=== PATIENT | male | born 1960 | race Caucasian/White ===

== ENCOUNTER 2016-07-20 16:18 | Inpatient (IN) | payer MEDICAID ==
[~2016-07-20] VITALS: Ht 172.7 cm; Wt 107.1 kg
[~2016-07-20 16:18] MED LIST: ASPIRIN 81M81 MG/TA2 PO; ATIVAN 0.50.5 MG/TAB PO; BIOTENE MOIST44.3 ML PO; CALAN80 MG; CALAN80 MG PO; CLARITIN LIQUI-10 MG; COLACE 100100 MG/CAP PO; FOLIC ACID 11 MG/TA1 PO; MAG-OX 400400 MG/TAB PO; MORPHINE SULFAT60 M1 PO; PERCOCET 325 MG1 TAB PO; PERCOCET 5/321 UDTAB PO; PRENATAL PLUS; PRINZIDE 25 MG-1 TAB; PRINZIDE 25 MG-1 TAB PO; PROTONIX 40MG T40 MG PO; ROXICODONE 55 MG/TAB PO; SENNA8.6 MG PO; TENORMIN 2525 MG/TAB; TENORMIN 5050 MG/TAB PO; TENORMIN100 MG; THERAGRAN TAB1 UDTAB PO; THIAMINE 1100 MG/TAB PO; TOPROL XL25 MG PO; TUMS500 MG PO; VERAPAMIL 440 MG/TAB PO; ZOCOR 40MG40 MG PO
[2016-11-08] MEDS ORDERED: MS CONTIN 330 MG/TAB PO (09:50)
[2016-11-08] MEDS ORDERED: PERCOCET 325 MG1 TAB PO (09:52)
[2016-11-09] VITALS (15 sets, daily range): BP systolic 88–143; BP diastolic 49–88; PULSE 70–109; TEMP 97.9–101.7
[2016-11-10 05:12] VITALS: BP 131/74; PULSE 85; TEMP 97.5
[2016-11-10 06:24] LABS: HEMATOCRIT 26.9 % (42.0-52.0)
[2016-11-10 07:37] VITALS: BP 107/72; PULSE 100; TEMP 97.9
[2016-11-10 12:19] VITALS: BP 99/52; PULSE 94; TEMP 98.9
[2016-11-10] MEDS ORDERED: ASPI325T6 PO (14:38)
== END 2016-11-10 16:00 | disposition home or self-care (01) | DRG 470 ==
LOC: JCC 08-30 07:30
PROVIDERS: Orthopaedic Surgery Sports Medicine
PROC: 0SRD0JA Replacement of Left Knee Joint with Synthetic Substitute, Uncemented, Open Approach (ICD-10-PCS; principal; 2016-11-09 07:30)
DX: M16.12 Unilateral primary osteoarthritis, left hip (principal); I10 Essential (primary) hypertension
CPT/HCPCS: A9284; C1713; C1776; J0690; J1170; J2250; J2274; J2405; J2704; J3010; J7120

== ENCOUNTER → 2016-11-03 | Outpatient (CLI) | payer MEDICAID ==
[~2016-11-03] MED LIST changes: +ASPI325T6 PO; +MS CONTIN 330 MG/TAB PO
== END ==
LOC: COL.LAB 12:11
DX: Z01.812 Encounter for preprocedural laboratory examination (principal); M25.851 Other specified joint disorders, right hip

== ENCOUNTER 2016-11-08 12:36 | Outpatient (RCR) | payer MEDICAID ==
[~2016-11-08 12:36] MED LIST changes: -ASPI325T6 PO
[2016-11-10] MEDS ORDERED: ASPI325T6 PO (14:38)
== END 2016-12-29 11:15 | disposition home or self-care (01) ==
LOC: MKS.ESL.PT 12:36
DX: M16.12 Unilateral primary osteoarthritis, left hip (principal)

== ENCOUNTER 2016-12-27 14:00 | Outpatient (RCR) | payer MEDICAID ==
[~2016-12-27 14:00] MED LIST changes: +ASPI325T6 PO
== END 2016-12-29 11:15 | disposition home or self-care (01) ==
LOC: MKS.ESL.PT 14:00
DX: M16.12 Unilateral primary osteoarthritis, left hip (principal); Z96.642 Presence of left artificial hip joint
CPT/HCPCS: G0283-GP

== ENCOUNTER 2017-02-19 13:24 | Emergency (ER) | payer MEDICAID ==
[~2017-02-19] VITALS: Ht 172.7 cm; Wt 104.5 kg
[2017-02-19 13:42] VITALS: BP 124/71; TEMP 97.9
[2017-02-19 14:21] VITALS: PULSE 85
== END 2017-02-19 14:21 | disposition home or self-care (01) ==
LOC: COL.ER 13:24
DX: L91.8 Other hypertrophic disorders of the skin (principal); B37.2 Candidiasis of skin and nail; I10 Essential (primary) hypertension

== ENCOUNTER 2018-01-22 08:20 | Emergency (ER) | payer MEDICAID ==
[~2018-01-22] VITALS: Ht 172.7 cm; Wt 90.9 kg
[2018-01-22 08:27] VITALS: TEMP 98.9
[2018-01-22 09:00] LABS: HEMOGLOBIN 14.4 g/dl (13.5-18.0); MEAN CELL VOLUME 106 fl (80.0-100.0); MEAN CORPUSCULAR HEMOGLOBIN 37 pg (27.0-31.0); MEAN CORPUSCULAR HGB CONC 35 g/dl (33.0-37.0); MEAN PLATELET VOLUME 8.8 fl (7.4-10.4); PLATELET COUNT 110 K/mm3 (130-400); RED BLOOD COUNT 3.86 M/mm3 (4.20-5.60); REDCELL DISTRIBUTION WIDTH-CV 13.7 % (11.5-14.5)
[2018-01-22 09:10] LABS: ALBUMIN 4.5 gm/dL (3.5-5.0); BILIRUBIN,TOTAL 1.2 mg/dL (0.0-1.0); CALCIUM 9.9 mg/dL (8.4-10.2); CREATININE, serum 0.58 mg/dL (0.66-1.25)
[2018-01-22 09:22] LABS: BAND 25 % (0-10); LYMPHOCYTE 16 % (20.0-51.0); NEUTROPHILS 50 % (42.0-75.2); PLATELET ESTIMATE DECREASED (NORMAL)
[2018-01-22] MEDS ORDERED: VALIUM 5MG T5 MG/TAB PO (14:00)
[2018-01-22] MEDS ORDERED: ZOFRAN 4MG T4 MG/TAB PO (14:01)
[2018-01-22 14:14] VITALS: BP 130/80; PULSE 86
== END 2018-01-22 14:15 | disposition home or self-care (01) ==
LOC: COL.ER 08:20
PROVIDERS: Emergency Medicine
DX: F10.129 Alcohol abuse with intoxication, unspecified (principal); R11.2 Nausea with vomiting, unspecified; Y90.8 Blood alcohol level of 240 mg/100 ml or more; Z86.59 Personal history of other mental and behavioral disorders; Z79.82 Long term (current) use of aspirin
CPT/HCPCS: J2405; J3475; J7030

== ENCOUNTER 2018-03-16 16:31 | Emergency (ER) | payer MEDICAID ==
[~2018-03-16] VITALS: Ht 172.7 cm; Wt 90.9 kg
[~2018-03-16 16:31] MED LIST changes: +VALIUM 5MG T5 MG/TAB PO; +ZOFRAN 4MG T4 MG/TAB PO
[2018-03-16 16:32] VITALS: TEMP 99.1
[2018-03-16] MEDS ORDERED: ZOCOR 10MG10 MG PO (16:36)
[2018-03-16 16:50] LABS: BASO # 0.1 (0.0-0.2); BASO % 1.4 % (0.0-2.0); EOS # 0.3 (0.0-0.7); EOS % 3.9 % (0-4.0); GRAN # 4.6 (1.4-6.5); HEMOGLOBIN 11.5 g/dl (13.5-18.0); LYMPH # 1.1 (1.2-3.4); LYMPH % 15.7 % (20.0-51.0); MEAN CELL VOLUME 109 fl (80.0-100.0); MEAN CORPUSCULAR HEMOGLOBIN 38 pg (27.0-31.0); MEAN CORPUSCULAR HGB CONC 35 g/dl (33.0-37.0); MEAN PLATELET VOLUME 8.7 fl (7.4-10.4); MONO # 0.7 (0.1-0.6); MONO % 10.2 % (1.7-9.3); PLATELET COUNT 131 K/mm3 (130-400); RED BLOOD COUNT 3.01 M/mm3 (4.20-5.60); REDCELL DISTRIBUTION WIDTH-CV 12.8 % (11.5-14.5)
[2018-03-16 16:59] LABS: BILIRUBIN,TOTAL 1.8 mg/dL (0.0-1.0); CALCIUM 8.6 mg/dL (8.4-10.2); CREATININE, serum 0.46 mg/dL (0.66-1.25); POTASSIUM 4.2 mmol/L (3.4-5.0); TOTAL PROTEIN 7.5 gm/dL (6.4-8.2)
[2018-03-16 17:07] LABS: HEMATOCRIT 32.7 % (42.0-52.0)
[2018-03-16 19:28] VITALS: BP 128/88; PULSE 95
[2018-03-17] MEDS ORDERED: VALIUM 5MG T5 MG/TAB PO (17:31)
== END 2018-03-16 19:31 | disposition home or self-care (01) ==
LOC: COL.ER 16:31
PROVIDERS: Emergency Medicine
DX: S16.1XXA Strain of muscle, fascia and tendon at neck level, initial encounter (principal); S00.83XA Contusion of other part of head, initial encounter; Z23 Encounter for immunization; Z79.82 Long term (current) use of aspirin; W01.0XXA Fall on same level from slipping, tripping and stumbling without subsequent striking against object, initial encounter; Y92.009 Unspecified place in unspecified non-institutional (private) residence as the place of occurrence of the external cause
CPT/HCPCS: J1885; J7030

== ENCOUNTER 2018-03-17 15:51 | Emergency (ER) | payer MEDICAID ==
[~2018-03-17] VITALS: Ht 172.7 cm; Wt 90.9 kg
[~2018-03-17 15:51] MED LIST changes: +ZOCOR 10MG10 MG PO
[2018-03-17 15:53] VITALS: TEMP 98.5
[2018-03-17 16:31] LABS: MEAN CELL VOLUME 110 fl (80.0-100.0); MEAN CORPUSCULAR HEMOGLOBIN 38 pg (27.0-31.0); MEAN CORPUSCULAR HGB CONC 34 g/dl (33.0-37.0); MEAN PLATELET VOLUME 8.5 fl (7.4-10.4); PLATELET COUNT 126 K/mm3 (130-400); RED BLOOD COUNT 2.93 M/mm3 (4.20-5.60); REDCELL DISTRIBUTION WIDTH-CV 12.6 % (11.5-14.5)
[2018-03-17 16:33] LABS: HEMATOCRIT 32.2 % (42.0-52.0)
[2018-03-17 16:49] LABS: ALBUMIN 3.7 gm/dL (3.5-5.0); BILIRUBIN,TOTAL 1.6 mg/dL (0.0-1.0); CALCIUM 8.8 mg/dL (8.4-10.2); CREATININE, serum 0.48 mg/dL (0.66-1.25); POTASSIUM 4.4 mmol/L (3.4-5.0); TOTAL PROTEIN 7.2 gm/dL (6.4-8.2)
[2018-03-17 17:08] LABS: BAND 24 % (0-10); BASOPHIL 3 % (0-2); EOSINOPHIL 2 % (0-4); LYMPHOCYTE 20 % (20.0-51.0); METAMYELOCYTE 3 % (0-0); NEUTROPHILS 44 % (42.0-75.2); PLATELET ESTIMATE DECREASED (NORMAL)
[2018-03-17] MEDS ORDERED: VALIUM 5MG T5 MG/TAB PO (17:31)
[2018-03-17 17:44] VITALS: BP 135/94; PULSE 95
== END 2018-03-17 17:46 | disposition home or self-care (01) ==
LOC: COL.ER 15:51
PROVIDERS: Physician Assistant
DX: F10.229 Alcohol dependence with intoxication, unspecified (principal); Y90.8 Blood alcohol level of 240 mg/100 ml or more; Z79.82 Long term (current) use of aspirin
CPT/HCPCS: J3411; J7030

== ENCOUNTER 2018-03-26 11:19 | Emergency (ER) | payer MEDICAID ==
[~2018-03-26] VITALS: Ht 172.7 cm; Wt 95.9 kg
[2018-03-26 11:21] VITALS: TEMP 99.6
[2018-03-26] MEDS ORDERED: VALIUM 5MG T5 MG/TAB PO (11:43)
[2018-03-26 11:59] LABS: HEMOGLOBIN 12.7 g/dl (13.5-18.0); MEAN CELL VOLUME 110 fl (80.0-100.0); MEAN CORPUSCULAR HEMOGLOBIN 38 pg (27.0-31.0); MEAN CORPUSCULAR HGB CONC 35 g/dl (33.0-37.0); MEAN PLATELET VOLUME 8.7 fl (7.4-10.4); PLATELET COUNT 145 K/mm3 (130-400); RED BLOOD COUNT 3.32 M/mm3 (4.20-5.60); REDCELL DISTRIBUTION WIDTH-CV 13.7 % (11.5-14.5)
[2018-03-26 12:12] LABS: ALANINE AMINOTRANSFERASE 52 U/L (21-72); ALBUMIN 3.8 gm/dL (3.5-5.0); ALKALINE PHOSPHATASE 204 U/L (50-136); ANION GAP 16 mmol/L (7-16); AST,SGOT 91 U/L (15-37); BILIRUBIN,TOTAL 2.1 mg/dL (0.0-1.0); BLOOD UREA NITROGEN 9 mg/dL (9-20); CALCIUM 8.7 mg/dL (8.4-10.2); CARBON DIOXIDE 25 mmol/L (22-30); CHLORIDE 100 mmol/L (98-107); CREATININE, serum 0.53 mg/dL (0.66-1.25); GLUCOSE 118 mg/dL (74-106); POTASSIUM 3.3 mmol/L (3.4-5.0); SODIUM 140 mmol/L (137-145); TOTAL PROTEIN 7.7 gm/dL (6.4-8.2)
[2018-03-26 12:13] LABS: ALCOHOL(ethanol),MEDICAL < 10 mg/dL
[2018-03-26 12:16] LABS: HEMATOCRIT 36.6 % (42.0-52.0)
[2018-03-26] MEDS ORDERED: ZOFRAN ODT4 MG PO (12:31)
[2018-03-26 12:39] LABS: COLLECTION METHOD CLEAN CATCH
[2018-03-26 12:44] LABS: MUCOUS Present /lpf; PH 6 (5-8); SQUAMOUS EPITHELIAL 0-2 /hpf; URINE APPEARANCE Clear; URINE BACTERIA None Seen /hpf; URINE BILIRUBIN Negative (NEGATIVE); URINE BLOOD Negative (NEGATIVE); URINE COLOR Yellow; URINE GLUCOSE Negative (NEGATIVE); URINE KETONE Negative (NEGATIVE); URINE LEUKOCYTE ESTERASE Trace (NEGATIVE); URINE NITRATE Negative (NEGATIVE); URINE PROTEIN(semi-quant) Negative (NEGATIVE); URINE RBC 0-2 /hpf; URINE UROBILINOGEN Negative (NEGATIVE)
[2018-03-26 13:08] VITALS: BP 124/84; PULSE 83
[2018-03-26 13:44] LABS: ANISOCYTOSIS 1+; BAND 8 % (0-10); BASOPHIL 1 % (0-2); EOSINOPHIL 2 % (0-4); LYMPHOCYTE 22 % (20.0-51.0); METAMYELOCYTE 2 % (0-0); NEUTROPHILS 61 % (42.0-75.2); PLATELET ESTIMATE DECREASED (NORMAL)
== END 2018-03-26 13:10 | disposition home or self-care (01) ==
LOC: COL.ER 11:19
PROVIDERS: Family Medicine
DX: F10.239 Alcohol dependence with withdrawal, unspecified (principal); F17.210 Nicotine dependence, cigarettes, uncomplicated; Z79.82 Long term (current) use of aspirin
CPT/HCPCS: J2060; J7030

== ENCOUNTER 2018-04-29 07:33 | Emergency (ER) | payer MEDICAID ==
[~2018-04-29] VITALS: Ht 172.7 cm; Wt 93.2 kg
[~2018-04-29 07:33] MED LIST changes: +ZOFRAN ODT4 MG PO
[2018-04-29 07:43] VITALS: BP 144/77
[2018-04-29 08:45] LABS: HEMATOCRIT 37.3 % (42.0-52.0); HEMOGLOBIN 12.8 g/dl (13.5-18.0); MEAN CELL VOLUME 101 fl (80.0-100.0); MEAN CORPUSCULAR HEMOGLOBIN 35 pg (27.0-31.0); MEAN CORPUSCULAR HGB CONC 34 g/dl (33.0-37.0); MEAN PLATELET VOLUME 9.5 fl (7.4-10.4); PLATELET COUNT 224 K/mm3 (130-400); REDCELL DISTRIBUTION WIDTH-CV 12.8 % (11.5-14.5)
[2018-04-29 08:53] LABS: PROTHROMBIN TIME 11.6 SECONDS (9.7-12.8)
[2018-04-29 08:55] LABS: PARTIAL THROMBOPLASTIN TIME 35.4 SECONDS (26.0-37.0)
[2018-04-29 08:56] LABS: BILIRUBIN,TOTAL 1.2 mg/dL (0.0-1.0); CALCIUM 9.9 mg/dL (8.4-10.2); CREATININE, serum 0.82 mg/dL (0.66-1.25)
[2018-04-29 09:01] LABS: BAND 18 % (0-10); EOSINOPHIL 10 % (0-4); LYMPHOCYTE 6 % (20.0-51.0); NEUTROPHILS 64 % (42.0-75.2)
[2018-04-29 09:02] LABS: PLATELET ESTIMATE NORMAL (NORMAL)
[2018-04-29] MEDS ORDERED: DOXYCYCLINE 10100 MG PO (10:50)
[2018-04-29] MEDS ORDERED: OMNICEF 300MG300 MG PO (10:50)
[2018-04-29 12:09] VITALS: PULSE 91; TEMP 97.5
== END 2018-04-29 12:05 | disposition home or self-care (01) ==
LOC: COL.ER 07:33
PROVIDERS: Emergency Medicine
DX: L03.114 Cellulitis of left upper limb (principal); I10 Essential (primary) hypertension; E78.00 Pure hypercholesterolemia, unspecified
CPT/HCPCS: J0696; J1170; J7030; J7050

== ENCOUNTER 2018-04-30 07:58 | Inpatient (IN) | payer MEDICAID ==
[~2018-04-30] VITALS: Ht 172.7 cm; Wt 93.2 kg
[~2018-04-30 07:58] MED LIST changes: +DOXYCYCLINE 10100 MG PO; +OMNICEF 300MG300 MG PO
[2018-04-30 08:44] LABS: HEMOGLOBIN 12.5 g/dl (13.5-18.0); MEAN CELL VOLUME 102 fl (80.0-100.0); MEAN CORPUSCULAR HEMOGLOBIN 36 pg (27.0-31.0); MEAN CORPUSCULAR HGB CONC 36 g/dl (33.0-37.0); MEAN PLATELET VOLUME 9.2 fl (7.4-10.4); PLATELET COUNT 198 K/mm3 (130-400); RED BLOOD COUNT 3.44 M/mm3 (4.20-5.60); REDCELL DISTRIBUTION WIDTH-CV 13.1 % (11.5-14.5)
[2018-04-30 08:52] LABS: ALBUMIN 3.6 gm/dL (3.5-5.0); BILIRUBIN,TOTAL 0.8 mg/dL (0.0-1.0); C-REACTIVE PROTEIN 7.8 mg/dL (0.0-0.9); CALCIUM 10.1 mg/dL (8.4-10.2); CREATININE, serum 0.6 mg/dL (0.66-1.25); POTASSIUM 3.8 mmol/L (3.4-5.0); TOTAL PROTEIN 7.3 gm/dL (6.4-8.2)
[2018-04-30 09:23] LABS: BAND 19 % (0-10); EOSINOPHIL 4 % (0-4); LYMPHOCYTE 8 % (20.0-51.0); NEUTROPHILS 66 % (42.0-75.2)
[2018-04-30 09:24] LABS: PLATELET ESTIMATE NORMAL (NORMAL); STOMATOCYTE 1+
[2018-04-30 09:28] LABS: ERYTHROCYTE SEDIMENTATION RATE 80 mm/hr (0-30)
[2018-04-30 12:48] VITALS: BP 121/67; PULSE 83; TEMP 98.5
[2018-04-30 16:35] VITALS: BP 122/76; PULSE 84; TEMP 98.7
[2018-04-30 20:30] VITALS: BP 124/72; PULSE 84; TEMP 97.5
[2018-05-01 01:13] VITALS: BP 125/72; PULSE 76; TEMP 98.2
[2018-05-01 07:06] LABS: BASO # 0.1 (0.0-0.2); BASO % 0.5 % (0.0-2.0); EOS # 1.6 (0.0-0.7); EOS % 9.4 % (0-4.0); GRAN % 66.5 % (42.2-75.2); HEMOGLOBIN 11.4 g/dl (13.5-18.0); LYMPH # 1.8 (1.2-3.4); LYMPH % 10.6 % (20.0-51.0); MEAN CELL VOLUME 102 fl (80.0-100.0); MEAN CORPUSCULAR HEMOGLOBIN 35 pg (27.0-31.0); MEAN CORPUSCULAR HGB CONC 34 g/dl (33.0-37.0); MEAN PLATELET VOLUME 9.5 fl (7.4-10.4); MONO # 0.8 (0.1-0.6); MONO % 4.9 % (1.7-9.3); PLATELET COUNT 251 K/mm3 (130-400); RED BLOOD COUNT 3.29 M/mm3 (4.20-5.60); REDCELL DISTRIBUTION WIDTH-CV 12.8 % (11.5-14.5)
[2018-05-01 07:10] LABS: HEMATOCRIT 33.6 % (42.0-52.0)
[2018-05-01 07:16] LABS: CALCIUM 9.1 mg/dL (8.4-10.2); CREATININE, serum 0.6 mg/dL (0.66-1.25)
[2018-05-01 07:52] VITALS: BP 127/82; PULSE 89; TEMP 98.4
[2018-05-01 08:07] LABS: BAND 8 % (0-10); BASOPHIL 1 % (0-2); EOSINOPHIL 8 % (0-4); LYMPHOCYTE 9 % (20.0-51.0); NEUTROPHILS 68 % (42.0-75.2)
[2018-05-01 08:11] LABS: PLATELET ESTIMATE NORMAL (NORMAL)
[2018-05-01 11:44] VITALS: BP 116/81; PULSE 75; TEMP 98.5
[2018-05-01 15:21] VITALS: BP 118/65; PULSE 73; TEMP 99
[2018-05-01 20:04] VITALS: BP 131/69; PULSE 80; TEMP 98.2
[2018-05-02 00:26] VITALS: BP 106/49; PULSE 76; TEMP 98.4
[2018-05-02 00:38] LABS: RPR (VDRL) Non-reactive (())
[2018-05-02 07:25] LABS: MEAN CELL VOLUME 103 fl (80.0-100.0); MEAN CORPUSCULAR HEMOGLOBIN 35 pg (27.0-31.0); MEAN CORPUSCULAR HGB CONC 34 g/dl (33.0-37.0); MEAN PLATELET VOLUME 9.9 fl (7.4-10.4); PLATELET COUNT 243 K/mm3 (130-400); RED BLOOD COUNT 3.16 M/mm3 (4.20-5.60); REDCELL DISTRIBUTION WIDTH-CV 12.7 % (11.5-14.5)
[2018-05-02 07:29] LABS: HEMATOCRIT 32.6 % (42.0-52.0)
[2018-05-02 07:35] LABS: CALCIUM 8.8 mg/dL (8.4-10.2); CREATININE, serum 0.57 mg/dL (0.66-1.25); POTASSIUM 3.8 mmol/L (3.4-5.0)
[2018-05-02 07:50] VITALS: BP 138/84; PULSE 74; TEMP 98.5
[2018-05-02 08:50] LABS: BAND 13 % (0-10); EOSINOPHIL 13 % (0-4); HYPOCHROMIA 2+; LYMPHOCYTE 19 % (20.0-51.0); METAMYELOCYTE 1 % (0-0); MYELOCYTE 2 % (0-0); NEUTROPHILS 49 % (42.0-75.2)
[2018-05-02 08:51] LABS: PLATELET ESTIMATE NORMAL (NORMAL)
[2018-05-02 11:05] VITALS: BP 136/74; PULSE 91; TEMP 98.2
[2018-05-02 12:45] LABS: LYME DISEASE ANTIBODIES Negative (Negative)
[2018-05-02] MEDS ORDERED: CEPHALEXIN500 M1 PO (14:00)
== END 2018-05-02 16:00 | disposition home or self-care (01) | DRG 603 ==
LOC: COL.ER 07:58 → MEDICAL 09:14
PROVIDERS: Family Medicine; Internal Medicine; Internal Medicine Infectious Disease
DX: L03.114 Cellulitis of left upper limb (principal); M19.90 Unspecified osteoarthritis, unspecified site; F10.10 Alcohol abuse, uncomplicated; R21 Rash and other nonspecific skin eruption
CPT/HCPCS: 99223-AI; 99233-AI; 99239; J0696; J1450; J1644; J3010; J7030

== ENCOUNTER 2018-07-19 19:30 | Emergency (ER) | payer MEDICAID ==
[~2018-07-19] VITALS: Ht 172.7 cm; Wt 97.7 kg
[~2018-07-19 19:30] MED LIST changes: +CEPHALEXIN500 M1 PO
[2018-07-19 19:34] VITALS: TEMP 99.1
[2018-07-19 20:05] LABS: BASO # 0.1 (0.0-0.2); BASO % 0.8 % (0.0-2.0); EOS % 0.1 % (0-4.0); GRAN # 8.2 (1.4-6.5); GRAN % 79.3 % (42.2-75.2); HEMATOCRIT 44.3 % (42.0-52.0); HEMOGLOBIN 14.8 g/dl (13.5-18.0); LYMPH % 9.6 % (20.0-51.0); MEAN CELL VOLUME 103 fl (80.0-100.0); MEAN CORPUSCULAR HEMOGLOBIN 34 pg (27.0-31.0); MEAN CORPUSCULAR HGB CONC 33 g/dl (33.0-37.0); MONO # 0.8 (0.1-0.6); PLATELET COUNT 170 K/mm3 (130-400); RED BLOOD COUNT 4.31 M/mm3 (4.20-5.60); REDCELL DISTRIBUTION WIDTH-CV 15.5 % (11.5-14.5)
[2018-07-19 20:10] LABS: ARTERIAL BLD GAS O2 SATURATION 94.2 % (92-100); ARTERIAL BLD GAS TCO2 CT 14.3; ARTERIAL BLOOD GAS HCO3 13.4 meq/L (22-26); ARTERIAL BLOOD GAS PCO2 27.3 mmHg (35-45); ARTERIAL BLOOD GAS pH 7.31 (7.35-7.45)
[2018-07-19 20:11] LABS: ALANINE AMINOTRANSFERASE 77 U/L (21-72); ALKALINE PHOSPHATASE 128 U/L (50-136); ANION GAP 35 mmol/L (7-16); AST,SGOT 189 U/L (15-37); BILIRUBIN,TOTAL 3.6 mg/dL (0.0-1.0); BLOOD UREA NITROGEN 12 mg/dL (9-20); CALCIUM 10.2 mg/dL (8.4-10.2); CREATININE, serum 0.89 mg/dL (0.66-1.25); GLUCOSE 101 mg/dL (74-106); LIPASE 132 U/L (23-300); POTASSIUM 4.3 mmol/L (3.4-5.0); SODIUM 136 mmol/L (137-145); TOTAL PROTEIN 8.7 gm/dL (6.4-8.2)
[2018-07-19 20:12] LABS: CARBON DIOXIDE 13 mmol/L (22-30); CHLORIDE 89 mmol/L (98-107)
[2018-07-19 20:16] LABS: ALCOHOL(ethanol),MEDICAL 254 mg/dL
[2018-07-19] MEDS ORDERED: MS CONTIN 115 MG/TAB PO (20:43)
[2018-07-19 20:47] LABS: TROPONIN-I < 0.012 ng/mL (0.000-0.034)
[2018-07-19 21:53] LABS: COLLECTION METHOD CLEAN CATCH
[2018-07-19 22:08] LABS: GRANULAR CAST >12 /lpf; HYALINE CAST >12 /lpf; MUCOUS Present /lpf; PH 5 (5-8); SQUAMOUS EPITHELIAL 0-2 /hpf; URINE APPEARANCE Hazy; URINE BACTERIA Rare /hpf; URINE BILIRUBIN Negative (NEGATIVE); URINE BLOOD Negative (NEGATIVE); URINE COLOR Amber; URINE GLUCOSE Negative (NEGATIVE); URINE KETONE 2+ (NEGATIVE); URINE LEUKOCYTE ESTERASE Negative (NEGATIVE); URINE NITRATE Negative (NEGATIVE); URINE PROTEIN(semi-quant) 3+ (NEGATIVE); URINE RBC 0-2 /hpf; URINE UROBILINOGEN >=4.0 mg/dL (NEGATIVE)
[2018-07-19 23:01] VITALS: BP 107/75
[2018-07-19 23:30] VITALS: PULSE 71
== END 2018-07-20 | disposition short-term general hospital (02) ==
LOC: COL.ER 19:30
PROVIDERS: Family Medicine
DX: F10.20 Alcohol dependence, uncomplicated (principal); E86.9 Volume depletion, unspecified; E87.2 Acidosis; I10 Essential (primary) hypertension; Z79.891 Long term (current) use of opiate analgesic; Z87.19 Personal history of other diseases of the digestive system; Z87.891 Personal history of nicotine dependence; Y90.8 Blood alcohol level of 240 mg/100 ml or more
CPT/HCPCS: C9113; J1170; J2060; J2405; J7030; J7042; J7120; Q9967

== ENCOUNTER 2018-10-03 17:31 | Inpatient (IN) | payer MEDICAID ==
[2018-10-03] VITALS (48 sets, daily range): BP systolic 155; BP diastolic 96; PULSE 95; TEMP 98; O2SAT 81–99
[~2018-10-03] VITALS: Ht 172.7 cm; Wt 76.7 kg
[~2018-10-03 17:31] MED LIST changes: +MS CONTIN 115 MG/TAB PO
[2018-10-03 18:22] LABS: HEMATOCRIT 44.6 % (42.0-52.0); HEMOGLOBIN 15.7 g/dl (13.5-18.0); MEAN CELL VOLUME 113 fl (80.0-100.0); MEAN CORPUSCULAR HEMOGLOBIN 40 pg (27.0-31.0); MEAN CORPUSCULAR HGB CONC 35 g/dl (33.0-37.0); MEAN PLATELET VOLUME 9.6 fl (7.4-10.4); PLATELET COUNT 186 K/mm3 (130-400); RED BLOOD COUNT 3.96 M/mm3 (4.20-5.60); REDCELL DISTRIBUTION WIDTH-CV 13.2 % (11.5-14.5)
[2018-10-03 18:35] LABS: ALBUMIN 5.2 gm/dL (3.5-5.0); BILIRUBIN,TOTAL 3.8 mg/dL (0.0-1.0); CALCIUM 11.4 mg/dL (8.4-10.2); CREATININE, serum 0.62 mg/dL (0.66-1.25); POTASSIUM 4.1 mmol/L (3.4-5.0)
[2018-10-03 18:53] LABS: BAND 11 % (0-10); LYMPHOCYTE 16 % (20.0-51.0); METAMYELOCYTE 2 % (0-0); NEUTROPHILS 68 % (42.0-75.2); PLATELET ESTIMATE NORMAL (NORMAL)
[2018-10-03 19:19] LABS: INR 1.1 (0.8-3.0)
[2018-10-03] MEDS ORDERED: ZOFRAN ODT4 MG PO (19:56)
[2018-10-03] MEDS ORDERED: PHENERGAN25 MG RC (19:56)
[2018-10-03] MEDS ORDERED: CLARITIN 1010 MG/TAB PO (22:33)
[2018-10-03 22:38] LABS: PHOSPHOROUS 4.2 mg/dL (2.5-4.5)
[2018-10-03 22:55] LABS: COLLECTION METHOD CLEAN CATCH
[2018-10-03 23:08] LABS: MUCOUS Present /lpf; PH 6 (5-8); SQUAMOUS EPITHELIAL None Seen /hpf; URINE APPEARANCE Clear; URINE BACTERIA None Seen /hpf; URINE BILIRUBIN Negative (NEGATIVE); URINE BLOOD Negative (NEGATIVE); URINE COLOR Yellow; URINE GLUCOSE Negative (NEGATIVE); URINE KETONE 1+ (NEGATIVE); URINE LEUKOCYTE ESTERASE Negative (NEGATIVE); URINE NITRATE Negative (NEGATIVE); URINE PROTEIN(semi-quant) 1+ (NEGATIVE); URINE RBC 0-2 /hpf; URINE UROBILINOGEN Negative (NEGATIVE)
[2018-10-03 23:18] LABS: TRICYCLIC ANTIDEPRESS URINE NEGATIVE
[2018-10-04] VITALS (785 sets, daily range): BP systolic 98–136; BP diastolic 61–91; PULSE 81–100; TEMP 98.1–99.7; O2SAT 57–100
[2018-10-04 01:03] LABS: ARTERIAL BLD GAS O2 SATURATION 93.6 % (92-100); ARTERIAL BLD GAS TCO2 CT 25.2; ARTERIAL BLOOD GAS BASE EXCESS -1.2 (-2-2); ARTERIAL BLOOD GAS HCO3 23.9 meq/L (22-26); ARTERIAL BLOOD GAS PCO2 41.6 mmHg (35-45); ARTERIAL BLOOD GAS pH 7.38 (7.35-7.45)
[2018-10-04 05:49] LABS: MEAN CELL VOLUME 112 fl (80.0-100.0); MEAN CORPUSCULAR HGB CONC 35 g/dl (33.0-37.0); MEAN PLATELET VOLUME 9.6 fl (7.4-10.4); PLATELET COUNT 99 K/mm3 (130-400); REDCELL DISTRIBUTION WIDTH-CV 12.9 % (11.5-14.5)
[2018-10-04 05:51] LABS: HEMATOCRIT 33.6 % (42.0-52.0); HEMOGLOBIN 11.7 g/dl (13.5-18.0); MEAN CORPUSCULAR HEMOGLOBIN 39 pg (27.0-31.0)
[2018-10-04 06:01] LABS: ALBUMIN 3.7 gm/dL (3.5-5.0); BILIRUBIN,TOTAL 2.9 mg/dL (0.0-1.0); CREATININE, serum 0.5 mg/dL (0.66-1.25); MAGNESIUM 1.7 mg/dL (1.6-2.3); POTASSIUM 3.5 mmol/L (3.4-5.0); TOTAL PROTEIN 6.4 gm/dL (6.4-8.2)
[2018-10-04 06:21] LABS: BAND 5 % (0-10); EOSINOPHIL 2 % (0-4); LYMPHOCYTE 33 % (20.0-51.0); METAMYELOCYTE 1 % (0-0); NEUTROPHILS 54 % (42.0-75.2); PLATELET ESTIMATE DECREASED (NORMAL); STOMATOCYTE 2+
[2018-10-05] VITALS (409 sets, daily range): BP systolic 125–162; BP diastolic 70–102; PULSE 87–114; TEMP 97.2–98.8; O2SAT 57–100
[2018-10-05 05:55] LABS: HEMOGLOBIN 11.1 g/dl (13.5-18.0); MEAN CELL VOLUME 113 fl (80.0-100.0); MEAN CORPUSCULAR HEMOGLOBIN 40 pg (27.0-31.0); MEAN CORPUSCULAR HGB CONC 35 g/dl (33.0-37.0); MEAN PLATELET VOLUME 9.5 fl (7.4-10.4); PLATELET COUNT 94 K/mm3 (130-400); RED BLOOD COUNT 2.78 M/mm3 (4.20-5.60); REDCELL DISTRIBUTION WIDTH-CV 12.9 % (11.5-14.5)
[2018-10-05 05:57] LABS: HEMATOCRIT 31.4 % (42.0-52.0)
[2018-10-05 06:10] LABS: CALCIUM 8.3 mg/dL (8.4-10.2); CREATININE, serum 0.41 mg/dL (0.66-1.25); POTASSIUM 3.3 mmol/L (3.4-5.0)
[2018-10-05 07:13] LABS: BAND 13 % (0-10); BASOPHIL 1 % (0-2); EOSINOPHIL 4 % (0-4); LYMPHOCYTE 24 % (20.0-51.0); NEUTROPHILS 47 % (42.0-75.2); PLATELET ESTIMATE DECREASED (NORMAL)
[2018-10-05 07:14] LABS: STOMATOCYTE 1+
[2018-10-06] VITALS (14 sets, daily range): BP systolic 123–160; BP diastolic 74–102; PULSE 85–118; TEMP 97.5–99.1
[2018-10-06 06:13] LABS: HEMOGLOBIN 11.5 g/dl (13.5-18.0); MEAN CELL VOLUME 115 fl (80.0-100.0); MEAN CORPUSCULAR HEMOGLOBIN 40 pg (27.0-31.0); MEAN CORPUSCULAR HGB CONC 35 g/dl (33.0-37.0); PLATELET COUNT 112 K/mm3 (130-400); RED BLOOD COUNT 2.89 M/mm3 (4.20-5.60); REDCELL DISTRIBUTION WIDTH-CV 12.9 % (11.5-14.5)
[2018-10-06 06:17] LABS: HEMATOCRIT 33.1 % (42.0-52.0)
[2018-10-06 06:22] LABS: ALBUMIN 3.4 gm/dL (3.5-5.0); BILIRUBIN,TOTAL 2.1 mg/dL (0.0-1.0); CALCIUM 8.2 mg/dL (8.4-10.2); CREATININE, serum 0.41 mg/dL (0.66-1.25); MAGNESIUM 1.5 mg/dL (1.6-2.3); PHOSPHOROUS 1.4 mg/dL (2.5-4.5); POTASSIUM 3.3 mmol/L (3.4-5.0); TOTAL PROTEIN 6.1 gm/dL (6.4-8.2)
[2018-10-06 07:13] LABS: BAND 10 % (0-10); EOSINOPHIL 3 % (0-4); LYMPHOCYTE 21 % (20.0-51.0); METAMYELOCYTE 1 % (0-0); NEUTROPHILS 56 % (42.0-75.2); PLATELET ESTIMATE DECREASED (NORMAL)
[2018-10-06 07:14] LABS: STOMATOCYTE 1+
[2018-10-07] VITALS (12 sets, daily range): BP systolic 120–178; BP diastolic 60–90; PULSE 82–121; TEMP 98.6–99.6
[2018-10-07 07:04] LABS: MEAN CELL VOLUME 114 fl (80.0-100.0); MEAN CORPUSCULAR HEMOGLOBIN 39 pg (27.0-31.0); MEAN CORPUSCULAR HGB CONC 34 g/dl (33.0-37.0); MEAN PLATELET VOLUME 9.7 fl (7.4-10.4); PLATELET COUNT 106 K/mm3 (130-400); RED BLOOD COUNT 3.07 M/mm3 (4.20-5.60); REDCELL DISTRIBUTION WIDTH-CV 12.9 % (11.5-14.5)
[2018-10-07 07:16] LABS: ALBUMIN 3.3 gm/dL (3.5-5.0); BILIRUBIN,TOTAL 2.1 mg/dL (0.0-1.0); CALCIUM 7.9 mg/dL (8.4-10.2); CREATININE, serum 0.45 mg/dL (0.66-1.25); MAGNESIUM 1.6 mg/dL (1.6-2.3); PHOSPHOROUS 2.7 mg/dL (2.5-4.5); POTASSIUM 3.3 mmol/L (3.4-5.0)
[2018-10-07 09:09] LABS: BAND 12 % (0-10); BASOPHIL 1 % (0-2); EOSINOPHIL 9 % (0-4); LYMPHOCYTE 18 % (20.0-51.0); METAMYELOCYTE 2 % (0-0); NEUTROPHILS 51 % (42.0-75.2)
[2018-10-07 09:11] LABS: PLATELET ESTIMATE DECREASED (NORMAL)
[2018-10-07 16:09] LABS: FOLATE (FOLIC ACID) 7.8 ng/mL (7.0-31.4)
[2018-10-08] VITALS (12 sets, daily range): BP systolic 127–153; BP diastolic 71–95; PULSE 79–99; TEMP 97–99.4
[2018-10-08 07:29] LABS: MAGNESIUM 1.6 mg/dL (1.6-2.3); POTASSIUM 3.6 mmol/L (3.4-5.0)
[2018-10-08 09:36] LABS: HEMOGLOBIN 11.1 g/dl (13.5-18.0); MEAN CELL VOLUME 117 fl (80.0-100.0); MEAN CORPUSCULAR HEMOGLOBIN 40 pg (27.0-31.0); MEAN CORPUSCULAR HGB CONC 34 g/dl (33.0-37.0); MEAN PLATELET VOLUME 10.5 fl (7.4-10.4); PLATELET COUNT 133 K/mm3 (130-400); RED BLOOD COUNT 2.81 M/mm3 (4.20-5.60); REDCELL DISTRIBUTION WIDTH-CV 13.1 % (11.5-14.5)
[2018-10-08 09:43] LABS: BILIRUBIN,TOTAL 1.5 mg/dL (0.0-1.0); CREATININE, serum 0.43 mg/dL (0.66-1.25); POTASSIUM 3.6 mmol/L (3.4-5.0); TOTAL PROTEIN 5.5 gm/dL (6.4-8.2)
[2018-10-08 09:44] LABS: HEMATOCRIT 32.9 % (42.0-52.0)
[2018-10-08 10:13] LABS: BAND 21 % (0-10); EOSINOPHIL 11 % (0-4); LYMPHOCYTE 21 % (20.0-51.0); METAMYELOCYTE 1 % (0-0); NEUTROPHILS 34 % (42.0-75.2); PLATELET ESTIMATE DECREASED (NORMAL)
[2018-10-08 10:14] LABS: ANISOCYTOSIS 1+
[2018-10-09] VITALS (13 sets, daily range): BP systolic 115–160; BP diastolic 62–96; PULSE 78–113; TEMP 97.9–98.7
[2018-10-09 06:24] LABS: HEMOGLOBIN 10.7 g/dl (13.5-18.0); MEAN CELL VOLUME 117 fl (80.0-100.0); MEAN CORPUSCULAR HEMOGLOBIN 39 pg (27.0-31.0); MEAN CORPUSCULAR HGB CONC 33 g/dl (33.0-37.0); MEAN PLATELET VOLUME 9.8 fl (7.4-10.4); PLATELET COUNT 158 K/mm3 (130-400); RED BLOOD COUNT 2.73 M/mm3 (4.20-5.60); REDCELL DISTRIBUTION WIDTH-CV 13.3 % (11.5-14.5)
[2018-10-09 06:31] LABS: ALBUMIN 2.9 gm/dL (3.5-5.0); BILIRUBIN,TOTAL 1.5 mg/dL (0.0-1.0); CREATININE, serum 0.45 mg/dL (0.66-1.25); MAGNESIUM 1.6 mg/dL (1.6-2.3); POTASSIUM 3.6 mmol/L (3.4-5.0); TOTAL PROTEIN 5.4 gm/dL (6.4-8.2)
[2018-10-09 07:07] LABS: BAND 16 % (0-10); EOSINOPHIL 8 % (0-4); LYMPHOCYTE 22 % (20.0-51.0); NEUTROPHILS 36 % (42.0-75.2); PLATELET ESTIMATE NORMAL (NORMAL)
[2018-10-09 07:08] LABS: STOMATOCYTE 1+
[2018-10-10 04:50] VITALS: BP 145/75; PULSE 89; TEMP 98.8
[2018-10-10 07:08] LABS: HEMOGLOBIN 10.8 g/dl (13.5-18.0); MEAN CELL VOLUME 118 fl (80.0-100.0); MEAN CORPUSCULAR HEMOGLOBIN 39 pg (27.0-31.0); MEAN CORPUSCULAR HGB CONC 33 g/dl (33.0-37.0); MEAN PLATELET VOLUME 9.7 fl (7.4-10.4); PLATELET COUNT 185 K/mm3 (130-400); RED BLOOD COUNT 2.79 M/mm3 (4.20-5.60); REDCELL DISTRIBUTION WIDTH-CV 13.3 % (11.5-14.5)
[2018-10-10 07:10] LABS: HEMATOCRIT 32.9 % (42.0-52.0)
[2018-10-10 07:22] LABS: CALCIUM 8.2 mg/dL (8.4-10.2); CREATININE, serum 0.45 mg/dL (0.66-1.25); MAGNESIUM 1.5 mg/dL (1.6-2.3); POTASSIUM 3.6 mmol/L (3.4-5.0)
[2018-10-10 08:05] VITALS: BP 149/80; PULSE 85; TEMP 98.2
[2018-10-10 09:53] VITALS: BP 137/81; PULSE 86; TEMP 98
[2018-10-10 10:19] LABS: BAND 16 % (0-10); EOSINOPHIL 6 % (0-4); LYMPHOCYTE 11 % (20.0-51.0); METAMYELOCYTE 3 % (0-0); NEUTROPHILS 50 % (42.0-75.2); PLATELET ESTIMATE NORMAL (NORMAL)
[2018-10-10 11:56] VITALS: BP 134/75; PULSE 81; TEMP 99
[2018-10-10 15:16] VITALS: BP 155/84; PULSE 102; TEMP 98.2
[2018-10-10 19:40] VITALS: BP 139/79; PULSE 88; TEMP 98.2
[2018-10-11 00:33] VITALS: BP 125/74; PULSE 78; TEMP 97.6
[2018-10-11 04:25] VITALS: BP 119/62; PULSE 74; TEMP 97.5
[2018-10-11 06:11] LABS: HEMOGLOBIN 11.4 g/dl (13.5-18.0); MEAN CELL VOLUME 118 fl (80.0-100.0); MEAN CORPUSCULAR HEMOGLOBIN 39 pg (27.0-31.0); MEAN CORPUSCULAR HGB CONC 33 g/dl (33.0-37.0); MEAN PLATELET VOLUME 9.4 fl (7.4-10.4); PLATELET COUNT 210 K/mm3 (130-400); REDCELL DISTRIBUTION WIDTH-CV 13.3 % (11.5-14.5)
[2018-10-11 06:12] LABS: HEMATOCRIT 34.2 % (42.0-52.0)
[2018-10-11 06:23] LABS: CALCIUM 8.3 mg/dL (8.4-10.2); CREATININE, serum 0.49 mg/dL (0.66-1.25); POTASSIUM 3.9 mmol/L (3.4-5.0)
[2018-10-11 06:44] LABS: BAND 8 % (0-10); BASOPHIL 1 % (0-2); EOSINOPHIL 4 % (0-4); LYMPHOCYTE 28 % (20.0-51.0); NEUTROPHILS 48 % (42.0-75.2); PLATELET ESTIMATE NORMAL (NORMAL)
[2018-10-11 06:47] LABS: HYPOCHROMIA 1+
[2018-10-11 08:35] VITALS: BP 146/84; PULSE 90; TEMP 98.6
[2018-10-11 11:38] VITALS: BP 135/82; PULSE 78; TEMP 98.2
[2018-10-11 15:30] VITALS: BP 134/93; PULSE 84; TEMP 97.7
[2018-10-11 21:22] VITALS: BP 116/56; PULSE 83; TEMP 98.3
[2018-10-12] VITALS (13 sets, daily range): BP systolic 104–145; BP diastolic 65–89; PULSE 80–123; TEMP 97.5–98.8
[2018-10-12 08:53] LABS: HEMOGLOBIN 11.5 g/dl (13.5-18.0); MEAN CELL VOLUME 119 fl (80.0-100.0); MEAN CORPUSCULAR HEMOGLOBIN 40 pg (27.0-31.0); MEAN CORPUSCULAR HGB CONC 34 g/dl (33.0-37.0); MEAN PLATELET VOLUME 9.5 fl (7.4-10.4); PLATELET COUNT 233 K/mm3 (130-400); RED BLOOD COUNT 2.87 M/mm3 (4.20-5.60); REDCELL DISTRIBUTION WIDTH-CV 13.2 % (11.5-14.5)
[2018-10-12 08:59] LABS: PROTHROMBIN TIME 11.8 SECONDS (9.7-12.8)
[2018-10-12 09:06] LABS: ALBUMIN 3.3 gm/dL (3.5-5.0); BILIRUBIN,TOTAL 1.2 mg/dL (0.0-1.0); CALCIUM 8.3 mg/dL (8.4-10.2); CREATININE, serum 0.54 mg/dL (0.66-1.25); MAGNESIUM 1.6 mg/dL (1.6-2.3)
[2018-10-12 09:48] LABS: BAND 4 % (0-10); BASOPHIL 1 % (0-2); EOSINOPHIL 6 % (0-4); LYMPHOCYTE 31 % (20.0-51.0); MYELOCYTE 2 % (0-0); NEUTROPHILS 51 % (42.0-75.2); PLATELET ESTIMATE NORMAL (NORMAL)
[2018-10-13 03:53] VITALS: BP 104/67; PULSE 86; TEMP 98.2
[2018-10-13 06:44] LABS: MEAN CELL VOLUME 121 fl (80.0-100.0); MEAN CORPUSCULAR HGB CONC 32 g/dl (33.0-37.0); MEAN PLATELET VOLUME 9.2 fl (7.4-10.4); PLATELET COUNT 196 K/mm3 (130-400); RED BLOOD COUNT 2.23 M/mm3 (4.20-5.60); REDCELL DISTRIBUTION WIDTH-CV 13.3 % (11.5-14.5)
[2018-10-13 06:50] LABS: HEMOGLOBIN 8.7 g/dl (13.5-18.0); MEAN CORPUSCULAR HEMOGLOBIN 39 pg (27.0-31.0)
[2018-10-13 06:56] LABS: ALBUMIN 2.7 gm/dL (3.5-5.0); BILIRUBIN,TOTAL 1.6 mg/dL (0.0-1.0); CALCIUM 7.7 mg/dL (8.4-10.2); CREATININE, serum 0.99 mg/dL (0.66-1.25); POTASSIUM 3.7 mmol/L (3.4-5.0); TOTAL PROTEIN 5.1 gm/dL (6.4-8.2)
[2018-10-13 06:58] LABS: MAGNESIUM 1.3 mg/dL (1.6-2.3)
[2018-10-13 07:35] LABS: BAND 18 % (0-10); BASOPHIL 2 % (0-2); EOSINOPHIL 2 % (0-4); LYMPHOCYTE 10 % (20.0-51.0); METAMYELOCYTE 3 % (0-0); NEUTROPHILS 53 % (42.0-75.2)
[2018-10-13 07:36] LABS: ANISOCYTOSIS 1+; HYPOCHROMIA 1+; PLATELET ESTIMATE NORMAL (NORMAL)
[2018-10-13 07:50] VITALS: BP 80/39; PULSE 80; TEMP 98.5; TEMP 98.7
[2018-10-13 11:33] VITALS: BP 120/78; PULSE 99; TEMP 98
[2018-10-13 16:26] VITALS: BP 107/54; PULSE 92; TEMP 98.5
[2018-10-13 17:44] LABS: HEMATOCRIT 26.4 % (42.0-52.0); HEMOGLOBIN 8.7 g/dl (13.5-18.0)
[2018-10-13 20:46] VITALS: BP 103/50; PULSE 93; TEMP 98.7
[2018-10-14] VITALS (7 sets, daily range): BP systolic 96–121; BP diastolic 51–75; PULSE 63–102; TEMP 97.7–98.8
[2018-10-14 06:05] LABS: HEMATOCRIT 24.9 % (42.0-52.0); MEAN CELL VOLUME 120 fl (80.0-100.0); MEAN CORPUSCULAR HEMOGLOBIN 39 pg (27.0-31.0); MEAN CORPUSCULAR HGB CONC 32 g/dl (33.0-37.0); MEAN PLATELET VOLUME 9.8 fl (7.4-10.4); PLATELET COUNT 193 K/mm3 (130-400); RED BLOOD COUNT 2.07 M/mm3 (4.20-5.60); REDCELL DISTRIBUTION WIDTH-CV 13.1 % (11.5-14.5)
[2018-10-14 06:17] LABS: CALCIUM 7.9 mg/dL (8.4-10.2); CREATININE, serum 0.51 mg/dL (0.66-1.25); MAGNESIUM 1.6 mg/dL (1.6-2.3); POTASSIUM 3.7 mmol/L (3.4-5.0)
[2018-10-14 06:25] LABS: BAND 7 % (0-10); BASOPHIL 3 % (0-2); EOSINOPHIL 9 % (0-4); LYMPHOCYTE 14 % (20.0-51.0); NEUTROPHILS 52 % (42.0-75.2); PLATELET ESTIMATE NORMAL (NORMAL)
[2018-10-14 06:26] LABS: HYPOCHROMIA 1+; STOMATOCYTE 2+
[2018-10-14 06:27] LABS: ANISOCYTOSIS 1+; TEAR DROP CELLS 1+
[2018-10-15 03:53] VITALS: BP 107/55; PULSE 105; TEMP 98.3
[2018-10-15 06:06] LABS: CALCIUM 7.9 mg/dL (8.4-10.2); CREATININE, serum 0.49 mg/dL (0.66-1.25); POTASSIUM 3.8 mmol/L (3.4-5.0)
[2018-10-15 07:04] LABS: HEMATOCRIT 24.7 % (42.0-52.0); MEAN CELL VOLUME 121 fl (80.0-100.0); MEAN CORPUSCULAR HEMOGLOBIN 39 pg (27.0-31.0); MEAN CORPUSCULAR HGB CONC 32 g/dl (33.0-37.0); PLATELET COUNT 229 K/mm3 (130-400); RED BLOOD COUNT 2.04 M/mm3 (4.20-5.60); REDCELL DISTRIBUTION WIDTH-CV 13.1 % (11.5-14.5)
[2018-10-15 07:14] LABS: BAND 13 % (0-10); BASOPHIL 2 % (0-2); EOSINOPHIL 2 % (0-4); LYMPHOCYTE 14 % (20.0-51.0); NEUTROPHILS 63 % (42.0-75.2); PLATELET ESTIMATE NORMAL (NORMAL)
[2018-10-15 07:15] LABS: STOMATOCYTE 2+
[2018-10-15 08:10] VITALS: BP 122/75; PULSE 103; TEMP 98
[2018-10-15] MEDS ORDERED: DUO-KAPS1 CAP PO (09:04)
[2018-10-15] MEDS ORDERED: PROTONIX 40MG T40 MG PO (09:04)
[2018-10-15] MEDS ORDERED: MAG-G500 MG PO (10:44)
== END 2018-10-15 11:51 | disposition home or self-care (01) | DRG 330 ==
LOC: COL.ER 17:31 → ICU 20:27 → MEDICAL 23:07 → ICU 23:08 → MEDICAL 10-05 17:49 → SURG 10-12 09:32
PROVIDERS: Emergency Medicine; Hospitalist; Internal Medicine; Internal Medicine Gastroenterology; Nurse Practitioner Family; Physician Assistant; Surgery
PROC: 0DB68ZX Excision of Stomach, Via Natural or Artificial Opening Endoscopic, Diagnostic (ICD-10-PCS; 2018-10-09)
PROC: 0DBH8ZX Excision of Cecum, Via Natural or Artificial Opening Endoscopic, Diagnostic (ICD-10-PCS; 2018-10-09)
PROC: 0DBN8ZX Excision of Sigmoid Colon, Via Natural or Artificial Opening Endoscopic, Diagnostic (ICD-10-PCS; 2018-10-09)
PROC: 0DB38ZX Excision of Lower Esophagus, Via Natural or Artificial Opening Endoscopic, Diagnostic (ICD-10-PCS; 2018-10-09 15:30)
PROC: 0DTG0ZZ Resection of Left Large Intestine, Open Approach (ICD-10-PCS; principal; 2018-10-12 09:45)
DX: C18.6 Malignant neoplasm of descending colon (principal); E87.2 Acidosis; F10.239 Alcohol dependence with withdrawal, unspecified; C18.7 Malignant neoplasm of sigmoid colon; Z66 Do not resuscitate; I10 Essential (primary) hypertension; G89.28 Other chronic postprocedural pain; E83.42 Hypomagnesemia; E87.8 Other disorders of electrolyte and fluid balance, not elsewhere classified; E83.52 Hypercalcemia; K22.70 Barrett's esophagus without dysplasia; F10.229 Alcohol dependence with intoxication, unspecified; K70.0 Alcoholic fatty liver; Y90.7 Blood alcohol level of 200-239 mg/100 ml; E83.39 Other disorders of phosphorus metabolism; M25.511 Pain in right shoulder; M25.521 Pain in right elbow; W18.30XA Fall on same level, unspecified, initial encounter; Y92.230 Patient room in hospital as the place of occurrence of the external cause; D64.9 Anemia, unspecified; K21.0 Gastro-esophageal reflux disease with esophagitis; K29.90 Gastroduodenitis, unspecified, without bleeding
CPT/HCPCS: 99222-AI; 99232-AI; 99233-AI; 99239; A4314; C9113; J0780; J1100; J1170; J1630; J1644; J1650; J1956; J2060; J2405; J2550; J2704; J2710; J3010; J3411; J3475; J3480; J7030; J7040; J7050; J7120; Q9967

== ENCOUNTER 2019-01-22 14:30 | Outpatient (RCR) | payer MEDICAID ==
[2018-12-01 11:01] LABS: HEMOGLOBIN 11.3 g/dl (13.5-18.0); MEAN CELL VOLUME 100 fl (80.0-100.0); MEAN CORPUSCULAR HEMOGLOBIN 35 pg (27.0-31.0); MEAN CORPUSCULAR HGB CONC 35 g/dl (33.0-37.0); MEAN PLATELET VOLUME 8.7 fl (7.4-10.4); PLATELET COUNT 202 K/mm3 (130-400); RED BLOOD COUNT 3.21 M/mm3 (4.20-5.60); REDCELL DISTRIBUTION WIDTH-CV 15.4 % (11.5-14.5)
[2018-12-01 11:11] LABS: ALBUMIN 4.1 gm/dL (3.5-5.0); BILIRUBIN,TOTAL 0.6 mg/dL (0.0-1.0); CALCIUM 9.8 mg/dL (8.4-10.2); CREATININE, serum 0.54 mg/dL (0.66-1.25); POTASSIUM 3.8 mmol/L (3.4-5.0); TOTAL PROTEIN 7.2 gm/dL (6.4-8.2)
[2018-12-01 11:16] LABS: HEMATOCRIT 32.1 % (42.0-52.0)
[2018-12-01 11:32] VITALS: BP 121/85; PULSE 85; TEMP 98.4
[2018-12-01 11:43] LABS: ANISOCYTOSIS 1+; EOSINOPHIL 4 % (0-4); LYMPHOCYTE 22 % (20.0-51.0); NEUTROPHILS 69 % (42.0-75.2); PLATELET ESTIMATE NORMAL (NORMAL); STOMATOCYTE 1+
[2018-12-08 10:50] VITALS: BP 144/77; PULSE 100; TEMP 97.8
--- NOTE | 2018-12-18 10:45 | NUR ---
Patient here for cares. He had to miss last Tuesday due to weather. PICC intact right upper arm with sterile dressing change done with insertion site cleansed with chloraprep x 1, chlorhexidine impregnated disk, skin prep, stat lock, and tegaderm applied. no signs or symptoms of IV complications noted. no concerns voiced. will return on Tuesday for cares. voiced understanding of instructions.
[2018-12-18 11:14] VITALS: BP 130/75; PULSE 89; TEMP 97.6
[2018-12-22 10:56] VITALS: BP 157/89; PULSE 111; TEMP 96.8
[2018-12-22 11:29] LABS: HEMOGLOBIN 12.1 g/dl (13.5-18.0); MEAN CELL VOLUME 99 fl (80.0-100.0); MEAN CORPUSCULAR HEMOGLOBIN 35 pg (27.0-31.0); MEAN CORPUSCULAR HGB CONC 35 g/dl (33.0-37.0); MEAN PLATELET VOLUME 8.9 fl (7.4-10.4); PLATELET COUNT 223 K/mm3 (130-400); RED BLOOD COUNT 3.44 M/mm3 (4.20-5.60); REDCELL DISTRIBUTION WIDTH-CV 18.5 % (11.5-14.5)
[2018-12-22 11:31] LABS: HEMATOCRIT 34.2 % (42.0-52.0)
[2018-12-22 11:33] LABS: ALBUMIN 4.3 gm/dL (3.5-5.0); BILIRUBIN,TOTAL 0.7 mg/dL (0.0-1.0); CALCIUM 9.6 mg/dL (8.4-10.2); CREATININE, serum 0.57 mg/dL (0.66-1.25); POTASSIUM 3.8 mmol/L (3.4-5.0); TOTAL PROTEIN 7.6 gm/dL (6.4-8.2)
[2018-12-22 12:35] LABS: ANISOCYTOSIS 2+; BAND 4 % (0-10); LYMPHOCYTE 8 % (20.0-51.0); METAMYELOCYTE 2 % (0-0); NEUTROPHILS 77 % (42.0-75.2); PLATELET ESTIMATE NORMAL (NORMAL)
[2018-12-29 10:20] VITALS: BP 126/80; PULSE 107; TEMP 97.9
--- NOTE | 2018-12-29 10:30 | NUR ---
Here for cares. PICC intact right upper arm with sterile dressing change done with insertion site cleansed with ChloraPrep 1, chlorhexidine impregnated disc applied, skin prep, StatLock, and Tegaderm applied. No signs or symptoms of IV complications noted. No concerns voiced. Patient to return next week for cares. Arm wrapped with Elmer to protect catheter. Patient voiced understanding of instructions.
--- NOTE | 2019-01-05 11:00 | NUR ---
here for PICC cares. With sterile technique right upper arm PICC dressing change done with insertion site cleansed with ChloraPrep 1, chlorhexidine impregnated disc applied, skin prep, StatLock, and Tegaderm applied. Due to symptoms of IV complications noted. No concerns voiced. Patient to return next week for cares. Patient voiced understanding of instructions.
[2019-01-05 11:20] VITALS: BP 134/87; PULSE 93; TEMP 98
[2019-01-12 10:00] VITALS: BP 146/88; PULSE 99; TEMP 98
[2019-01-12 10:19] LABS: HEMOGLOBIN 11.5 g/dl (13.5-18.0); MEAN CELL VOLUME 101 fl (80.0-100.0); MEAN CORPUSCULAR HEMOGLOBIN 35 pg (27.0-31.0); MEAN CORPUSCULAR HGB CONC 35 g/dl (33.0-37.0); MEAN PLATELET VOLUME 8.8 fl (7.4-10.4); PLATELET COUNT 194 K/mm3 (130-400); RED BLOOD COUNT 3.29 M/mm3 (4.20-5.60); REDCELL DISTRIBUTION WIDTH-CV 20.1 % (11.5-14.5)
[2019-01-12 10:21] LABS: HEMATOCRIT 33.1 % (42.0-52.0)
[2019-01-12 10:31] LABS: ALBUMIN 4.1 gm/dL (3.5-5.0); BILIRUBIN,TOTAL 0.6 mg/dL (0.0-1.0); CALCIUM 9.6 mg/dL (8.4-10.2); CREATININE, serum 0.54 mg/dL (0.66-1.25); POTASSIUM 3.8 mmol/L (3.4-5.0); TOTAL PROTEIN 7.4 gm/dL (6.4-8.2)
[2019-01-12 12:37] LABS: BAND 3 % (0-10); BASOPHIL 1 % (0-2); EOSINOPHIL 2 % (0-4); LYMPHOCYTE 20 % (20.0-51.0); MYELOCYTE 2 % (0-0); NEUTROPHILS 65 % (42.0-75.2); PLATELET ESTIMATE NORMAL (NORMAL)
[2019-01-12 12:38] LABS: ANISOCYTOSIS 1+
[~2019-01-22] VITALS: Ht 172.7 cm; Wt 101.4 kg
[2019-01-22 14:03] VITALS: BP 140/96; PULSE 101; TEMP 98.5
[~2019-01-22 14:30] MED LIST changes: +CLARITIN 1010 MG/TAB PO; +DUO-KAPS1 CAP PO; +MAG-G500 MG PO; +MULTI VITAMINS1 TAB PO; +NEURONTIN100 MG/CAP PO; +PHARMASSURE MA500 MG PO; +PHENERGAN25 MG RC
== END 2019-01-23 08:40 | disposition home or self-care (01) ==
LOC: EUO 14:30
PROVIDERS: Internal Medicine
DX: Z45.2 Encounter for adjustment and management of vascular access device (principal); Z95.9 Presence of cardiac and vascular implant and graft, unspecified; Z48.00 Encounter for change or removal of nonsurgical wound dressing
CPT/HCPCS: C1751

== ENCOUNTER → 2019-03-01 | Outpatient (CLI) | payer MEDICAID | LOC: COL.RAD 10:59 | DX: C18.6 Malignant neoplasm of descending colon (principal); I51.7 Cardiomegaly; J98.4 Other disorders of lung; M46.96 Unspecified inflammatory spondylopathy, lumbar region; M51.36 Other intervertebral disc degeneration, lumbar region; K76.0 Fatty (change of) liver, not elsewhere classified; K80.20 Calculus of gallbladder without cholecystitis without obstruction; Z96.642 Presence of left artificial hip joint | CPT/HCPCS: Q9967 ==

== ENCOUNTER → 2019-03-13 | Outpatient (CLI) | payer MEDICAID | LOC: COL.LAB 11:06 | DX: Z01.812 Encounter for preprocedural laboratory examination (principal) ==

== ENCOUNTER 2019-05-11 18:55 | Emergency (ER) | payer MEDICAID ==
[~2019-05-11] VITALS: Ht 172.7 cm; Wt 97.3 kg
[2019-05-11 18:55] VITALS: TEMP 99.5
[2019-05-11 19:34] LABS: HEMATOCRIT 40.8 % (42.0-52.0); HEMOGLOBIN 13.6 g/dl (13.5-18.0); MEAN CELL VOLUME 101 fl (80.0-100.0); MEAN CORPUSCULAR HEMOGLOBIN 34 pg (27.0-31.0); MEAN CORPUSCULAR HGB CONC 33 g/dl (33.0-37.0); MEAN PLATELET VOLUME 8.9 fl (7.4-10.4); PLATELET COUNT 166 K/mm3 (130-400); RED BLOOD COUNT 4.04 M/mm3 (4.20-5.60); REDCELL DISTRIBUTION WIDTH-CV 15.7 % (11.5-14.5)
[2019-05-11 19:50] LABS: ALBUMIN 4.1 gm/dL (3.5-5.0); BILIRUBIN,TOTAL 0.4 mg/dL (0.0-1.0); CREATININE, serum 0.56 (0.66-1.25); MAGNESIUM 1.5 mg/dL (1.6-2.3); PHOSPHOROUS 3.9 mg/dL (2.5-4.5); POTASSIUM 4.4 mmol/L (3.4-5.0); TOTAL PROTEIN 7.1 gm/dL (6.4-8.2)
[2019-05-11 19:54] LABS: C-REACTIVE PROTEIN 0.5 mg/dL (0.0-0.9)
[2019-05-11 20:00] LABS: TROPONIN-I 0.024 ng/mL (0.000-0.035)
[2019-05-11 20:01] LABS: BASOPHIL 2 % (0-2); EOSINOPHIL 14 % (0-4); LYMPHOCYTE 34 % (20.0-51.0); NEUTROPHILS 46 % (42.0-75.2); PLATELET ESTIMATE NORMAL (NORMAL)
[2019-05-11 20:02] LABS: ANISOCYTOSIS 2+
[2019-05-12 00:24] LABS: INR 0.9 (0.8-3.0)
[2019-05-12 00:27] LABS: PARTIAL THROMBOPLASTIN TIME 31.2 SECONDS (26.0-37.0)
[2019-05-12 01:35] VITALS: BP 135/74; PULSE 94
== END 2019-05-12 01:40 | disposition short-term general hospital (02) ==
LOC: COL.ER 18:55
PROVIDERS: Emergency Medicine
DX: G62.9 Polyneuropathy, unspecified (principal); F10.129 Alcohol abuse with intoxication, unspecified; R09.02 Hypoxemia; I10 Essential (primary) hypertension; Y90.7 Blood alcohol level of 200-239 mg/100 ml; Z85.038 Personal history of other malignant neoplasm of large intestine
CPT/HCPCS: J1644; J3010; Q9967

== ENCOUNTER 2019-05-31 15:38 | Inpatient (IN) | payer MEDICAID ==
[~2019-05-31] VITALS: Ht 172.7 cm; Wt 222.7 kg
[2019-05-31] MEDS ORDERED: ELIQUIS 5MG PO (15:50)
[2019-05-31 16:12] LABS: HEMATOCRIT 41.1 % (42.0-52.0); HEMOGLOBIN 13.7 g/dl (13.5-18.0); MEAN CELL VOLUME 100 fl (80.0-100.0); MEAN CORPUSCULAR HEMOGLOBIN 33 pg (27.0-31.0); MEAN CORPUSCULAR HGB CONC 33 g/dl (33.0-37.0); MEAN PLATELET VOLUME 8.7 fl (7.4-10.4); PLATELET COUNT 136 K/mm3 (130-400)
[2019-05-31 16:25] LABS: INR 1.3 (0.8-3.0)
[2019-05-31 16:27] LABS: PARTIAL THROMBOPLASTIN TIME 39.7 SECONDS (26.0-37.0)
[2019-05-31 16:38] LABS: ALANINE AMINOTRANSFERASE 74 U/L (21-72); ALKALINE PHOSPHATASE 149 U/L (50-136); ANION GAP 22 mmol/L (7-16); AST,SGOT 151 U/L (15-37); BILIRUBIN,TOTAL 1.1 mg/dL (0.0-1.0); BLOOD UREA NITROGEN 11 mg/dL (9-20); CALCIUM 9.6 mg/dL (8.4-10.2); CARBON DIOXIDE 22 mmol/L (22-30); CHLORIDE 94 mmol/L (98-107); CREATININE, serum 0.63 (0.66-1.25); GLUCOSE 71 mg/dL (74-106); LIPASE 149 U/L (23-300); MAGNESIUM 1.4 mg/dL (1.6-2.3); PHOSPHOROUS 4.3 mg/dL (2.5-4.5); POTASSIUM 4.7 mmol/L (3.4-5.0); SODIUM 138 mmol/L (137-145); TOTAL PROTEIN 8.1 gm/dL (6.4-8.2)
[2019-05-31 16:39] LABS: BAND 5 % (0-10); BASOPHIL 1 % (0-2); EOSINOPHIL 4 % (0-4); LYMPHOCYTE 31 % (20.0-51.0); METAMYELOCYTE 3 % (0-0); NEUTROPHILS 52 % (42.0-75.2)
[2019-05-31 16:40] LABS: ANISOCYTOSIS 1+; PLATELET ESTIMATE NORMAL (NORMAL)
[2019-05-31 16:52] LABS: COLLECTION METHOD CLEAN CATCH
[2019-05-31 16:54] LABS: ALCOHOL(ethanol),MEDICAL 386 mg/dL
[2019-05-31 16:57] LABS: TROPONIN-I < 0.012 ng/mL (0.000-0.035)
[2019-05-31 17:11] LABS: HYALINE CAST >12 /lpf; MUCOUS Present /lpf; PH 5 (5-8); SQUAMOUS EPITHELIAL None Seen /hpf; URINE APPEARANCE Clear; URINE BACTERIA None Seen /hpf; URINE BILIRUBIN Negative (NEGATIVE); URINE BLOOD Negative (NEGATIVE); URINE COLOR Yellow; URINE GLUCOSE Negative (NEGATIVE); URINE KETONE 2+ (NEGATIVE); URINE LEUKOCYTE ESTERASE Negative (NEGATIVE); URINE NITRATE Negative (NEGATIVE); URINE PROTEIN(semi-quant) 2+ (NEGATIVE); URINE RBC 0-2 /hpf; URINE UROBILINOGEN Negative (NEGATIVE)
[2019-05-31 18:43] LABS: ARTERIAL BLD GAS O2 SATURATION 87.9 % (92-100); ARTERIAL BLD GAS TCO2 CT 25.6; ARTERIAL BLOOD GAS BASE EXCESS -2.3 (-2-2); ARTERIAL BLOOD GAS HCO3 24.1 meq/L (22-26); ARTERIAL BLOOD GAS PCO2 47.8 mmHg (35-45); ARTERIAL BLOOD GAS PO2 64.9 mmHg (80-100); ARTERIAL BLOOD GAS pH 7.32 (7.35-7.45)
[2019-05-31] MEDS ORDERED: PROTONIX 40MG T40 MG PO (19:40)
[2019-05-31] MEDS ORDERED: PRINIVIL20 MG PO (19:40)
[2019-05-31 20:13] VITALS: BP 153/95; PULSE 90; TEMP 98.4
[2019-05-31 21:00] VITALS: BP 152/88; PULSE 88; TEMP 98.8
--- NOTE | 2019-05-31 21:00 | NUR ---
Admitted to medical floor from ER- diagnosis; Chest pain, ETOH ,, alert,oriented, cooperative, IV fluids of NS at 125cc/hr, on detox protocol, o2 at 2L/nc, understands to call for assistance to [facility]- on fall precautions, on Tele
[2019-05-31] MEDS ORDERED: NEURONTIN300 MG/CAP PO (21:10)
[2019-05-31 23:15] LABS: TRICYCLIC ANTIDEPRESS URINE NEGATIVE
[2019-05-31 23:34] VITALS: BP 152/88; PULSE 88; TEMP 98.8
[2019-05-31 23:36] VITALS: BP 152/88; PULSE 88; TEMP 98.8
[2019-06-01] VITALS (10 sets, daily range): BP systolic 134–171; BP diastolic 60–97; PULSE 75–98; TEMP 98.3–99
[2019-06-01 06:32] LABS: HEMOGLOBIN 11.8 g/dl (13.5-18.0); MEAN CELL VOLUME 100 fl (80.0-100.0); MEAN CORPUSCULAR HEMOGLOBIN 33 pg (27.0-31.0); MEAN CORPUSCULAR HGB CONC 33 g/dl (33.0-37.0); MEAN PLATELET VOLUME 8.6 fl (7.4-10.4); PLATELET COUNT 96 K/mm3 (130-400); RED BLOOD COUNT 3.58 M/mm3 (4.20-5.60); REDCELL DISTRIBUTION WIDTH-CV 13.8 % (11.5-14.5)
--- NOTE | 2019-06-01 06:37 | NUR ---
Did sleep for the 2-3 hours , did get Ativan p.o x2 during the night for detox scores of 4 . Denies chest pain. Percocet given x2 for pain neck,shoulders, left elbow.
[2019-06-01 06:38] LABS: HEMATOCRIT 35.9 % (42.0-52.0)
[2019-06-01 06:40] LABS: ALBUMIN 4.2 gm/dL (3.5-5.0); BILIRUBIN,TOTAL 1.1 mg/dL (0.0-1.0); CALCIUM 8.8 mg/dL (8.4-10.2); CREATININE, serum 0.52 (0.66-1.25); MAGNESIUM 1.5 mg/dL (1.6-2.3); POTASSIUM 5.1 mmol/L (3.4-5.0)
[2019-06-01 06:50] LABS: TROPONIN-I 0.015 ng/mL (0.000-0.035)
[2019-06-01 07:20] LABS: BAND 1 % (0-10); EOSINOPHIL 10 % (0-4); LYMPHOCYTE 21 % (20.0-51.0); METAMYELOCYTE 2 % (0-0); MYELOCYTE 1 % (0-0); NEUTROPHILS 60 % (42.0-75.2); PLATELET ESTIMATE DECREASED (NORMAL)
--- NOTE | 2019-06-01 14:16 | NUR ---
MIKA met with the patient to discuss a discharge plan. The pt lives in [place] with his Heike. The pt reports he does not use DME and reports independence with ADLs. The pt's PCP is Dr. Martin and pt receives his medications from [facility]. The pt may need a medication voucher upon discharge. The pt does not have advanced directives in the EMR and was not interested in a DPOA-HC form. The pt plans to return home and [facility]ike will provide transporation. MIKA will continue to follow to assist with discharge recommendations.
--- NOTE | 2019-06-01 19:12 | NUR ---
Report given to FAINA Mcclellan.
--- NOTE | 2019-06-01 20:15 | NUR ---
Pt. laying in bed with family at bedside. Pt. is A&OX3, assessment complete. IV to rt. wrist patent, IV fluids infusing per orders. Pt. reports back pain at a 4 on pain scale at this time. Pt. would like a pain pill with evening meds. Will give per orders. Pt. denies further needs, call light within reach.
[2019-06-02] VITALS (8 sets, daily range): BP systolic 143–164; BP diastolic 74–98; PULSE 81–103; TEMP 98.4–99.2
[2019-06-02 08:14] LABS: MEAN CELL VOLUME 101 fl (80.0-100.0); MEAN CORPUSCULAR HEMOGLOBIN 34 pg (27.0-31.0); MEAN CORPUSCULAR HGB CONC 33 g/dl (33.0-37.0); MEAN PLATELET VOLUME 9.4 fl (7.4-10.4); PLATELET COUNT 86 K/mm3 (130-400); RED BLOOD COUNT 3.57 M/mm3 (4.20-5.60); REDCELL DISTRIBUTION WIDTH-CV 13.4 % (11.5-14.5)
[2019-06-02 08:25] LABS: HEMATOCRIT 35.9 % (42.0-52.0)
[2019-06-02 08:38] LABS: BILIRUBIN,TOTAL 1.3 mg/dL (0.0-1.0); CALCIUM 8.7 mg/dL (8.4-10.2); CREATININE, serum 0.45 (0.66-1.25); MAGNESIUM 1.6 mg/dL (1.6-2.3); POTASSIUM 3.9 mmol/L (3.4-5.0); TOTAL PROTEIN 6.8 gm/dL (6.4-8.2)
--- NOTE | 2019-06-02 08:40 | NUR ---
Assessment complete. Pt sitting up in bed, drowsy but alert to stimuli, oriented x 3. Physical assessment unremarkable. Pt reports slight pain increasing to shoulder and neck, 3 out of 10 on pain scale. IVF's infusing per orders through right forearm site without s/s of complications. No further needs reported. Call light in reach. Bed alarm on.
[2019-06-02 10:00] LABS: BAND 2 % (0-10); BASOPHIL 1 % (0-2); EOSINOPHIL 12 % (0-4); HYPOCHROMIA 2+; LYMPHOCYTE 19 % (20.0-51.0); METAMYELOCYTE 5 % (0-0); NEUTROPHILS 52 % (42.0-75.2); PLATELET ESTIMATE DECREASED (NORMAL)
[2019-06-02 10:01] LABS: ANISOCYTOSIS 1+
--- NOTE | 2019-06-02 18:00 | NUR ---
Pt sitting up in bed, reports pain in back and neck increasing to 6 out of 10. PRN pain medication administered per orders. IVF's stopped and disconnected per orders. No further needs reported. Call light in reach.
--- NOTE | 2019-06-02 20:15 | NUR ---
Patient assessed at this time. Alert and oriented x 4. Does not always make needs known. Bed alarm in use due to patient transferring self. Gait is steady with walker. Walked to nutrition room and back. Peripheral IV to right forearm flushed. Site is without redness, warmth, swelling, and pain. Denies having SOB, dyspnea, and cough. LS CTA. Respirations even and unlabored. HRR. Denies chest pain and discomfort. BSAx4. Abdomen soft and non-tender. No edema noted. Bruising to left arm continues, but reports it is feelng much better today. Continues on detox protocol. Given 1 mg Ativan PO for score of 5. Given PRN Flexeril for pain. Denies having any questions, needs, or concerns at this time. Sitting up in recliner watching TV. Call light is within reach.
--- NOTE | 2019-06-02 22:15 | NUR ---
Given 1 mg Ativan PO for score of 5 on detox protocol. is at bedside. Patient resting in bed at this time. Denies having any questions, needs, or concerns at this time. Call light is within reach.
[2019-06-03 01:43] VITALS: BP 150/76; PULSE 95; TEMP 98.3
[2019-06-03 03:31] VITALS: BP 169/72; PULSE 95; TEMP 98.7
--- NOTE | 2019-06-03 05:49 | NUR ---
Patient continues to receive PRN Ativan 1 mg every two hours per detox protocol, scoring 4-5 throughout the shift. Has received PRN Apresoline twice this shift, around midnight and 0400 for SBP > 160. Patient got confused when waking up around 0300, and ripped out IV to right forearm by accident. Easily redirected. New IV started to right forearm. Wrapped with coban for protection. Received PRN pain medication around midnight. Has voiced no other complaints of pain or discomfort at this time. Has been resting in bed with eyes closed between awakenings. Voices no questions, needs, or concerns. at bedside. Resting in bed with eyes closed at this time. Call light is within reach.
[2019-06-03 06:00] VITALS: BP 154/88; PULSE 92; TEMP 98.2
[2019-06-03 07:51] LABS: MEAN CELL VOLUME 100 fl (80.0-100.0); MEAN CORPUSCULAR HEMOGLOBIN 34 pg (27.0-31.0); MEAN CORPUSCULAR HGB CONC 34 g/dl (33.0-37.0); MEAN PLATELET VOLUME 9.5 fl (7.4-10.4); PLATELET COUNT 89 K/mm3 (130-400); RED BLOOD COUNT 3.58 M/mm3 (4.20-5.60); REDCELL DISTRIBUTION WIDTH-CV 13.4 % (11.5-14.5)
[2019-06-03 07:55] LABS: HEMATOCRIT 35.8 % (42.0-52.0)
[2019-06-03 08:09] LABS: CALCIUM 9.7 mg/dL (8.4-10.2); CREATININE, serum 0.42 (0.66-1.25); MAGNESIUM 1.6 mg/dL (1.6-2.3); POTASSIUM 3.7 mmol/L (3.4-5.0)
[2019-06-03 08:22] VITALS: BP 141/76; PULSE 98; TEMP 98.4
--- NOTE | 2019-06-03 08:30 | NUR ---
Assessment complete. Pt resting in bed with eyes closed upon entry, alert to stimuli. Pt reports pain to back has decreased since receiving pain medication. Saline lock IV to left wrist without s/s of complications. Pt's at bedside, asking about discharge today, states "I don't feel he is ready to go home and don't feel comfortable taking him home yet." No further needs reported. Call light in reach.
[2019-06-03 08:53] LABS: BAND 10 % (0-10); EOSINOPHIL 15 % (0-4); LYMPHOCYTE 16 % (20.0-51.0); NEUTROPHILS 54 % (42.0-75.2); PLATELET ESTIMATE DECREASED (NORMAL)
[2019-06-03 10:27] VITALS: BP 112/94; PULSE 86; TEMP 98.6
[2019-06-03] MEDS ORDERED: FOLIC ACID 11 MG/TA1 PO (11:45)
[2019-06-03] MEDS ORDERED: THIAMINE 1100 MG/TAB PO (11:45)
[2019-06-03] MEDS ORDERED: NITROSTAT0.4 MG/TAB SL (11:45)
[2019-06-03] MEDS ORDERED: PROTONIX 40MG T40 MG PO (11:46)
[2019-06-03 13:10] LABS: FOLATE (FOLIC ACID) 16.5 ng/mL (7.0-31.4)
[2019-06-03 13:20] VITALS: BP 113/62; PULSE 90; TEMP 98.2
--- NOTE | 2019-06-03 14:13 | NUR ---
Discharge instructions reviewed with pt and pt's regarding new medications and follow-up appointment. Pt verbalizes understanding. Pt's reports pt's PCP is now Dr. Noel, will change in computer system. Pt discharged home, escorted out of facility via WC accompanied by this nurse and pt's .
== END 2019-06-03 14:05 | disposition home or self-care (01) | DRG 391 ==
LOC: COL.ER 15:38 → MEDICAL 18:23
PROVIDERS: Emergency Medicine; Nurse Practitioner Family; Physician Assistant; ADMIT Internal Medicine
PROC: HZ2ZZZZ Detoxification Services for Substance Abuse Treatment (ICD-10-PCS; principal; 2019-06-02)
PROC: 5A09357 Assistance with Respiratory Ventilation, Less than 24 Consecutive Hours, Continuous Positive Airway Pressure (ICD-10-PCS; 2019-06-02)
DX: K29.20 Alcoholic gastritis without bleeding (principal); J96.01 Acute respiratory failure with hypoxia; J96.02 Acute respiratory failure with hypercapnia; J98.11 Atelectasis; F10.10 Alcohol abuse, uncomplicated; E83.42 Hypomagnesemia; K22.70 Barrett's esophagus without dysplasia; L40.9 Psoriasis, unspecified; M19.90 Unspecified osteoarthritis, unspecified site; N50.89 Other specified disorders of the male genital organs; R53.81 Other malaise; I10 Essential (primary) hypertension; G89.29 Other chronic pain; G62.9 Polyneuropathy, unspecified; Z90.49 Acquired absence of other specified parts of digestive tract; Z92.21 Personal history of antineoplastic chemotherapy; Z85.038 Personal history of other malignant neoplasm of large intestine; Z86.711 Personal history of pulmonary embolism; Z79.01 Long term (current) use of anticoagulants; Z96.642 Presence of left artificial hip joint
CPT/HCPCS: 99222-AI; 99232-AI; 99239; J0360; J1650; J2060; J3411; J3475; J7030; Q9967

== ENCOUNTER → 2019-06-06 | Outpatient (CLI) | payer MEDICAID ==
[~2019-06-06] MED LIST changes: +ELIQUIS 5MG PO; +NEURONTIN300 MG/CAP PO; +NITROSTAT0.4 MG/TAB SL; +PRINIVIL20 MG PO
== END ==
LOC: COL.VAS 14:17
DX: K80.20 Calculus of gallbladder without cholecystitis without obstruction (principal); I72.8 Aneurysm of other specified arteries; R05 Cough
CPT/HCPCS: Q9967

== ENCOUNTER 2020-05-13 13:30 | Outpatient (RCR) | payer MEDICAID ==
[~2020-05-13 13:30] MED LIST changes: +NORVASC 10MG10 MG PO; +SINGULAIR 110 MG/TAB PO; +ZYRTEC 10MG10 MG PO
== END 2020-07-15 | disposition home or self-care (01) ==
LOC: MKS.ESL.PT
DX: Z96.651 Presence of right artificial knee joint (principal)